=== PATIENT | male | born 1940 | race African-American/Black ===

== ENCOUNTER 2023-02-11 12:47 | Emergency (ER) | payer MEDICARE ==
[~2023-02-11] VITALS: Ht 182.9 cm; Wt 126.1 kg
[2023-02-11] MEDS ORDERED: KEFLEX (13:05)
[2023-02-11] MEDS ORDERED: COLCHICINE (13:05)
[2023-02-11] MEDS ORDERED: LOSARTAN (13:05)
--- NOTE | 2023-02-11 13:16 | NUR ---
PT IS IN ROOM #IB. DR CHRISTY EVALUATED THE PT.
[2023-02-11 13:28] LABS: HEMATOCRIT 42.4 % (36.7-47.1); MEAN CORPUSCULAR HEMOGLOBIN 31.1 uug (23.8-33.4); MEAN CORPUSCULAR VOLUME 92.2 fL (73.0-96.2); PLATELET COUNT (AUTO) 186 K/uL (152-348)
[2023-02-11 13:52] LABS: ALANINE AMINOTRANSFERASE 24 U/L (16-63); ALKALINE PHOSPHATASE 133 U/L (50-136); ASPARTATE AMINOTRANSFERASE 22 U/L (15-37); BILIRUBIN,TOTAL 0.5 mg/dL (0.2-1.0); CARBON DIOXIDE 28 mmol/L (21-32); CHLORIDE 108 mmol/L (98-107); CREATININE 1.1 mg/dL (0.6-1.3); GLUCOSE 95 mg/dL (74-106); POTASSIUM 2.9 mmol/L (3.5-5.1); TOTAL PROTEIN, SERUM 6.9 g/dL (6.4-8.2); UREA NITROGEN, BLOOD 14 mg/dL (7-18)
[2023-02-11] MEDS ORDERED: VANCOMYCIN IV 2,000 MG in IV DEXTROSE 5% 500 ML IV STA (14:06)
[2023-02-11] MEDS ORDERED: VANCOMYCIN 1000 MG VIAL ONE (14:14)
[2023-02-11] MEDS ORDERED: CEFTRIAXONE /D5W 50ML IVPB **ER PYXIS IV ONE (14:14)
[2023-02-11] MEDS ORDERED: VANCOMYCIN IV 200 ML ONE (14:14)
[2023-02-11] MEDS ORDERED: CEFTRIAXONE 1 G in IV DEXTROSE 5% 50 ML IV ONE (14:15)
[2023-02-11] MEDS ORDERED: POTASSIUM BICARBONATE/CIT AC 25 MEQ TABLET.EFF PO ONE (15:00)
[2023-02-11] MEDS ORDERED: LIDOCAINE HCL 2% 20 ML VIAL ONE (15:07)
[2023-02-11] MEDS ORDERED: POTASSIUM BICARBONATE/CIT AC 25 MEQ TABLET.EFF ONE (15:16)
[2023-02-11] MEDS ORDERED: LIDOCAINE HCL 2% 20 ML VIAL IJ ONE (15:30)
[2023-02-11] MEDS ORDERED: predniSONE 50 MG TABLET PO ONE (16:00)
[2023-02-11] MEDS ORDERED: predniSONE 20 MG TABLET ONE (16:17)
[2023-02-11] MEDS ORDERED: predniSONE 10 MG TABLET ONE (16:17)
--- NOTE | 2023-02-11 18:04 | NUR ---
PT DECIDED TO LEAVE HOSPITAL AMA. DR CHRISTY [facility]PL[facility]. PT VERBALIZED FULL UNDERSTANDING. PT SIGNED AMA FORM . AND LEFT [facility] ER WITH HIS SON BY CAR.
[2023-02-11 18:10] VITALS: BP 139/81
== END 2023-02-11 18:11 | disposition left against medical advice (07) ==
LOC: ER 12:47
DX: L03.011 Cellulitis of right finger (principal); M10.9 Gout, unspecified; R07.89 Other chest pain; I10 Essential (primary) hypertension; E78.5 Hyperlipidemia, unspecified; Z79.899 Other long term (current) drug therapy; Z91.013 Allergy to seafood
CPT/HCPCS: 99284; 96365; 10060; 71045; 96367; 80053; 84550; 85025; 85651; 86140; 87040 ×2; 84484; 36415; 73130; 83605; J7512 ×2; J0696; J3490; J3370 ×2; A4663; J7060

== ENCOUNTER 2023-02-22 03:08 | Emergency (ER) | payer MEDICARE ==
[~2023-02-22] VITALS: Ht 193 cm; Wt 122.5 kg
[~2023-02-22 03:08] MED LIST: COLCHICINE; KEFLEX; LOSARTAN
[2023-02-22 03:28] LABS: MEAN CORPUSCULAR HEMOGLOBIN 31.4 uug (23.8-33.4); MEAN CORPUSCULAR VOLUME 92.8 fL (73.0-96.2); PLATELET COUNT (AUTO) 223 K/uL (152-348)
[2023-02-22 03:38] LABS: CARBON DIOXIDE 29 mmol/L (21-32); CHLORIDE 106 mmol/L (98-107); CREATININE 1.3 mg/dL (0.6-1.3); GLUCOSE 105 mg/dL (74-106); POTASSIUM 3.5 mmol/L (3.5-5.1); UREA NITROGEN, BLOOD 15 mg/dL (7-18)
--- NOTE | 2023-02-22 03:38 | NUR ---
Patient BIB family for c/o chest pain which initially started earlier in the evening. A/Ox4, no neuro deficits. Speech is clear, speaks in complete sentences.
[2023-02-22 03:51] LABS: ALANINE AMINOTRANSFERASE 33 U/L (16-63); ALKALINE PHOSPHATASE 135 U/L (50-136); ASPARTATE AMINOTRANSFERASE 23 U/L (15-37); BILIRUBIN,DIRECT 0.2 mg/dL (0.0-0.2); BILIRUBIN,TOTAL 0.6 mg/dL (0.2-1.0); TOTAL PROTEIN, SERUM 7.1 g/dL (6.4-8.2)
[2023-02-22] MEDS ORDERED: ASPIRIN 81 MG TAB.CHEW ONE (04:06)
--- NOTE | 2023-02-22 04:09 | NUR ---
Patient does not wish to proceed with medical care recommended by Dr. Plascencia. Patient given information related to possible complications, up to and including , which could occur as a result of leaving the hospital at this time. Patient verbalizes understanding of risks involved due to leaving against medical advice. Patient has signed AMA form. Patient's son is adamant in personally taking the patient to another acute hospital. Advised against patient's request due to patient's comorbidities, but they have decided to leave AMA. IV removed. Catheter intact and site benign. Pressure and 4x4 gauze applied to site. No bleeding noted.
[2023-02-22 04:11] VITALS: BP 156/89
[2023-02-22] MEDS ORDERED: ASPIRIN 81 MG TAB.CHEW PO ONE (04:15)
== END 2023-02-22 04:12 | disposition left against medical advice (07) ==
LOC: ER 03:14
DX: R07.89 Other chest pain (principal); E78.5 Hyperlipidemia, unspecified; I10 Essential (primary) hypertension; Z91.013 Allergy to seafood; Z79.899 Other long term (current) drug therapy; Z20.822 Contact with and (suspected) exposure to COVID-19
CPT/HCPCS: 36415; 71045; 84484; 85025; 85730; 93005; A4663